=== PATIENT | female | born 1970 | race Caucasian/White ===

== ENCOUNTER 2017-07-15 10:01 | Emergency (ER) | payer OTHER, SELFPAY ==
[2017-07-15] MEDS ORDERED: Ketorolac 30 MG/ML SDV IM ONE (10:12)
--- NOTE | 2017-07-15 10:20 | EDM.PDOC ---
ED HPI GENERAL MEDICAL PROBLEM - General Chief Complaint: Respiratory Problem Stated Complaint: CHEST PAIN Time Seen by Provider: 07/15/17 10:10 Source of Information: Reports: Patient, Old Records History Limitations: Reports: No Limitations - History of Present Illness INITIAL COMMENTS - FREE TEXT/NARRATIVE: 46 yo 1 ppd smoker presents with pleuritic central chest pain that was present upon awakening today. Pain worse with deep breathing. No calf pain or leg swelling. No fever. ? mild SOB. She recently had a hysterectomy. She called the surgeon's office today to report her sx's and was told to come to the ER. Has ibuprofen 800 mg prescribed for pain after her surgery, but has not taken any today. Onset: Today Onset Date: 07/15/17 Onset Time: 05:30 Duration: Hour(s):, Intermittent Location: Reports: Chest Quality: Reports: Sharp Severity: Moderate Improves with: Reports: Rest Worsens with: Reports: Movement Context: Reports: Other (smoker/recent surgery) Associated Symptoms: Reports: No Other Symptoms Treatments BUNDLE BREAKER: Reports: Other (see below) (oxycodone) mid chest Pain Score (Numeric/FACES): 6 - Related Data Allergies Allergy/AdvReac Type Severity Reaction Status Date / Time No Known Allergies Allergy Verified 07/15/17 10:09 Home Meds: Home Meds Citalopram [Citalopram HBr] 20 mg PO DAILY 07/15/17 [History] Ibuprofen 800 mg PO Q6HR 07/15/17 [History] oxyCODONE HCl/Acetaminophen [oxyCODONE-Acetaminophen 5-325] 1 tab PO Q4H [History] ED ROS GENERAL - Review of Systems Review Of Systems: See Below Constitutional: Reports: No Symptoms HEENT: Reports: No Symptoms Respiratory: Reports: Pleuritic Chest Pain. Denies: Shortness of Breath, Wheezing, Cough, Sputum, Hemoptysis Cardiovascular: Reports: No Symptoms Endocrine: Reports: No Symptoms GI/Abdominal: Reports: No Symptoms : Reports: No Symptoms Musculoskeletal: Reports: No Symptoms Skin: Reports: No Symptoms Neurological: Reports: No Symptoms Psychiatric: Reports: No Symptoms ED EXAM, GENERAL - Physical Exam Exam: See Below Exam Limited By: No Limitations General Appearance: Alert, WD/WN, No Apparent Distress Eye Exam: Bilateral Eye: Normal Inspection Ears: Normal External Exam, Normal Canal, Hearing Grossly Normal Ear Exam: Bilateral Ear: Auricle Normal, Canal Normal Nose: Normal Inspection, Normal Mucosa, No Blood Throat/Mouth: Normal Inspection, Normal Lips, Normal Teeth, Normal Gums, Normal Oropharynx, Normal Voice, No Airway Compromise Head: Atraumatic, Normocephalic Neck: Normal Inspection Respiratory/Chest: No Respiratory Distress, Lungs Clear, No Accessory Muscle Use , Other (Breath sounds slightly decreased). No: Respiratory Distress, Crackles , Rales, Rhonchi, Wheezing, Stridor, Accessory Muscle Use, Retractions, Splinting, Prolonged Expiration Cardiovascular: Regular Rate, Rhythm, No Edema GI/Abdominal: Normal Bowel Sounds, Soft, No Distention, Other (Fresh surgical scars present.). No: Distended, Guarding, Rigid, Rebound Back Exam: Normal Inspection. No: CVA Tenderness (R), CVA Tenderness (L) Extremities: Normal Inspection, Normal Range of Motion, Non-Tender, No Pedal Edema. No: Pedal Edema, Rina's Sign, Leg Pain, Limited Range of Motion Neurological: Alert, Oriented, CN II-XII Intact, Normal Cognition, No Motor/ Sensory Deficits Psychiatric: Normal Affect, Normal Mood Skin Exam: Warm, Dry, Intact, Normal Color, No Rash Lymphatic: No Adenopathy EKG INTERPRETATION EKG Date: 07/15/17 Time: 10:10 Rhythm: NSR Rate (Beats/Min): 58 [place]: Normal P-Wave: Present QRS: Normal ST-T: Normal QT: Normal Comparison: NA - No Prior EKG EKG Interpretation Comments: Low voltage, precordial leads ? due to emphysema Course - Vital Signs Text/Narrative:: CXR-hyperaeration only, emphysema? Orthostatic vitals-negative low risk calculation for PE based on data, elevated d-dimer felt due to recent surgery. Last Recorded V/S: Last Vital Signs Temp 35.7 C 07/15/17 10:01 Pulse 57 L 07/15/17 10:01 Resp 14 07/15/17 10:01 BP 107/61 07/15/17 10:01 Pulse Ox 100 07/15/17 10:01 Orthostatic Blood Pressure [ 108/58 Standing] Orthostatic Blood Pressure [ 113/62 Sitting] Orthostatic Blood Pressure [ 116/61 Supine] - Orders/Labs/Meds Orders: Active Orders 24 hr Category Date Time Status Orthostatic Vital Signs [RC] ASDIRECTED Care 07/15/17 11:07 Ordered Chest 2V [CR] Stat Exams 07/15/17 10:52 Ordered EKG 12 Lead [EK] Routine Ther 07/15/17 10:03 Ordered Labs: Laboratory Tests 07/15/17 Range/Units 10:25 D-Dimer, Quantitative 983 H (100-400) ng/mL Meds: Medications Discontinued Medications Generic Name Dose Route Start Last Admin Trade Name Oskar PRN Reason Stop Dose Admin Ketorolac Tromethamine 30 mg 07/15/17 10:12 07/15/17 10:22 Toradol IM 07/15/17 10:13 30 mg ONETIME ONE Administration Departure - Departure Time of Disposition: 11:32 Disposition: Home, Self-Care 01 Condition: Good Clinical Impression: Pleurisy, Tobacco abuse Emphysema of lung Qualifiers: Emphysema type: unspecified Qualified Code(s): J43.9 - Emphysema, unspecified - My Orders Last 24 Hours: My Active Orders 07/15/17 10:03 EKG 12 Lead [EK] Routine 07/15/17 10:52 Chest 2V [CR] Stat 07/15/17 11:07 Orthostatic Vital Signs [RC] ASDIRECTED - Assessment/Plan Last 24 Hours: My Active Orders 07/15/17 10:03 EKG 12 Lead [EK] Routine 07/15/17 10:52 Chest 2V [CR] Stat 07/15/17 11:07 Orthostatic Vital Signs [RC] ASDIRECTED
[2017-07-15 11:36] VITALS: BP 116/67
--- NOTE | 2017-07-15 12:27 | CR ---
INDICATION: Pleuritic chest pain. CHEST: PA and lateral views of the chest were obtained 07/15/2017. No comparisons were available. Overlying EKG leads are noted. The heart is within normal limits in size and shape. The aorta is tortuous. Bony structures appear to be fairly intact with only very minimal scoliosis, dextroconcave, lower thoracic spine. Linear density is noted apparently in the left lower lobe, likely linear atelectatic in nature. No definite consolidating pneumonia was identified; however, there is blunting of both posterior sulci, suggesting bilateral small pleural effusions. This may be on the basis of inflammatory process and should be correlated clinically. No evidence of pulmonary vascular congestion was identified. IMPRESSION: 1. Small bilateral pleural effusions are suggested by blunted posterior sulci. 2. Linear atelectatic change suggested in the left lower lobe. 3. No definite area of pneumonia is identified. 4. Mild ASD aorta. MTDD
== END 2017-07-15 11:40 | disposition home or self-care (01) ==
LOC: FB.ED 10:01
DX: J43.9 Emphysema, unspecified (principal); R09.1 Pleurisy; Z72.0 Tobacco use; Z79.899 Other long term (current) drug therapy
CPT/HCPCS: 36415; 71020; 85379; 93005; 96372; 99284; J1885